=== PATIENT | female | born 1955 | race Caucasian/White ===

== ENCOUNTER → 2017-06-14 | Outpatient (CLI) | payer OTHER ==
[~2017-06-14] MED LIST: ATOR10TA24 PO; DILT180T; HYDR-2966 PO; OMEP40CA48 PO
--- NOTE | 2017-06-18 16:37 | RADIOLOGY IMAGING REPORT ---
FACILITY: [facility] - [place] PATIENT NAME: TONA GAXIOLA : [id number] MR: [id number] V: [id number] EXAM DATE: [id number] ORDERING PHYSICIAN: JUSTIN ROSEN TECHNOLOGIST: Gladys Toth PROCEDURE:BILATERAL DIGITAL SCREENING MAMMOGRAM WITH CAD ASSISTED INTERPRETATION AND 3D BREAST TOMOSYNTHESIS. COMPARISON:Prior mammograms dated 05/04/16, 04/07/15, 04/06/14, 03/04/13, 01/03/12 and 12/19/10. INDICATIONS:SCREENING FINDINGS: A small amount of fibroglandular tissue is seen throughout the breasts. The parenchymal pattern has remained stable when allowing for difference in mammographic technique and patient positioning. There is no evidence of malignant appearing mass, malignant appearing calcification or other secondary sign of malignancy in either breast. DIAGNOSTIC CATEGORY 1--NEGATIVE. RECOMMENDATIONS: ROUTINE MAMMOGRAM AND CLINICAL EVALUATION. IMPRESSION: Bi-RADS 1: No significant abnormality is seen. Images were reviewed with R2CAD and 3D breast tomosynthesis. Dictated by: Bela Lema M.D. on 06/14/2017 at 11:33 Transcribed by: NORY on 06/14/2017 at 16:05 Approved by: Bela Lema M.D. on 06/18/2017 at 16:36 [facility]
== END ==
LOC: MAMO 02:51
PROVIDERS: ATTEND Nurse Practitioner Family
DX: Z12.31 Encounter for screening mammogram for malignant neoplasm of breast (principal)
CPT/HCPCS: 77063; 77067

== ENCOUNTER 2017-09-04 02:42 | Day surgery (SDC) | payer OTHER ==
[~2017-09-04] VITALS: Ht 162.6 cm; Wt 96.6 kg
[2017-09-04] VITALS (7 sets, daily range): BP systolic 102–132; BP diastolic 68–99
[~2017-09-04 02:42] MED LIST changes: +CHOL200021 PO; +DEXL60CA6 PO; -DILT180T; +DILT180T PO; +FAMO40TA8 PO; +FLUO-177 PO; +HYDR12.556 PO; +NAPR220C12 PO; +PANT40TA65 PO; +[UNRECOGNIZED DRUG - OTHER] PO
--- NOTE | 2017-09-04 07:56 | Short(Outpt) Discharge Summary ---
Discharge Summary Reason for Hosp/Final Diag: (1) Sanchez's esophagus Status: Chronic Hospital Course & Plan: EGD with biopsies completed without problems. (2) GERD (gastroesophageal reflux disease) Status: Chronic Departure Discharge to: Home, Self Care Discharge Instructions Home Meds Active Scripts Famotidine (PEPCID) 40 Mg Tablet, 40 MG PO QDAY, #30 TAB 6 Refills Prov:MARIE MCBRIDE MD 08/13/17 Pantoprazole Sodium (PANTOPRAZOLE SODIUM) 40 Mg Tablet.dr, 40 MG PO QDAY, #30 TAB.SR 6 Refills Take in the morning 1/2 hour prior to eating. Prov:MARIE MCBRIDE MD 08/13/17 Reported Medications Hydrochlorothiazide (HYDROCHLOROTHIAZIDE) 12.5 Mg Capsule, 1 TAB PO QDAY, CAPSULE 08/09/17 Dm Hb/Pe/Acetaminophen/Chlorph (COLD HEAD CONGESTION CAPLET) 1 Each Tablet, 1 TAB PO BID 08/08/17 Naproxen Sodium (ALEVE) Unknown Strength Capsule, PO BID Y for PAIN, CAPSULE 08/08/17 Cholecalciferol (Vitamin D3) (VITAMIN D) 2,000 Unit Capsule, 1 CAP PO DAILY, CAPSULE 08/08/17 Fluoxetine Hcl (FLUOXETINE HCL) 20 Mg Capsule, 1 CAP PO QDAY, CAPSULE 08/08/17 Atorvastatin Calcium (LIPITOR) 10 Mg Tablet, 1 TAB PO QDAY, TAB 10/12/15 Diltiazem HCl (Diltiazem ER) 180 Mg Tab.er.24h, 180 MG PO DAILY 10/12/15 Follow up Referrals: General Surgery - 10/01/17 @ Surgery, General with Marie Mcbride Md You have a follow up appointment scheduled with Dr. Mcbride on 10/01/17, at 9:00am. Diet: Regular Activity: As Tolerated Problem Qualifiers (1) Sanchez's esophagus: Sanchez's esophagus type: without dysplasia Qualified Codes: K22.70 - Sanchez 's esophagus without dysplasia (2) GERD (gastroesophageal reflux disease): Esophagitis presence: without esophagitis Qualified Codes: K21.9 - Gastro- esophageal reflux disease without esophagitis MARIE MCBRIDE MD Sep 04, 2017 07:56
[2017-09-04] MEDS ORDERED: LIDOCAINE/SOD BICARB 8.4% SYR ID ONE (09:10)
[2017-09-04] MEDS ORDERED: NORMOSOL R SOLN(*) 1000 ML BAG 1,000 ML IV PRN (09:10)
[2017-09-09] MEDS ORDERED: DEXL30CA5 PO ×2 (14:07→14:08)
[2017-09-09] MEDS ORDERED: DEXL60CA6 PO ×2 (14:58→15:38)
== END 2017-09-04 09:10 | disposition home or self-care (01) ==
LOC: OR 02:42
PROVIDERS: ATTEND Surgery
DX: K22.719 Barrett's esophagus with dysplasia, unspecified (principal); K31.7 Polyp of stomach and duodenum; K44.9 Diaphragmatic hernia without obstruction or gangrene
CPT/HCPCS: 88305

== ENCOUNTER → 2018-03-07 | Outpatient (CLI) | payer OTHER ==
[~2018-03-07] MED LIST changes: +DEXL30CA5 PO
== END ==
LOC: RESP 19:48
PROVIDERS: ATTEND Nurse Practitioner Family
DX: G47.33 Obstructive sleep apnea (adult) (pediatric) (principal); G47.36 Sleep related hypoventilation in conditions classified elsewhere

== ENCOUNTER → 2018-05-30 | Outpatient (CLI) | payer OTHER ==
--- NOTE | 2018-05-30 13:18 | RADIOLOGY IMAGING REPORT ---
FACILITY: [facility] PATIENT NAME: Lianna Figueredo : 1955 MR: [id number] V: [id number] EXAM DATE: ORDERING PHYSICIAN: JUSTIN ROSEN TECHNOLOGIST: Location: [facility] Patient: Lianna Figueredo : 1955 Visit/Account:[id number] Date of Sevice: 05/30/2018 Exam type: CHEST PA AND LAT History: Cough, expiratory wheezing x1 week Comparison: Report from the prior two-view chest the 2016 is available however the images are no t. Findings: There is mild increased AP diameter the chest which may reflect mild hyperinflation. There is no terri dence of focal infiltrates pleural effusions or pulmonary edema. The cardiac silhouette is normal in size. IMPRESSION: 1. Mild hyperinflation of the lung cisneros Report Dictated By: Bela Lema MD at 05/30/2018 1:11 PM Report E-Signed By: Bela Lema MD at 05/30/2018 1:13 PM WSN:[email or web address]
== END ==
LOC: RAD 10:26
PROVIDERS: ATTEND Nurse Practitioner Family
DX: R91.8 Other nonspecific abnormal finding of lung field (principal)
CPT/HCPCS: 71046

== ENCOUNTER → 2018-07-14 | Outpatient (CLI) | payer OTHER ==
--- NOTE | 2018-07-15 11:15 | RADIOLOGY IMAGING REPORT ---
FACILITY: [facility] - [place] PATIENT NAME: TONA GAXIOLA : [id number] MR: [id number] V: [id number] EXAM DATE: ORDERING PHYSICIAN: JUSTIN ROSEN TECHNOLOGIST: Radha Martin PROCEDURE:BILATERAL DIGITAL SCREENING MAMMOGRAM WITH CAD ASSISTED INTERPRETATION & 3D TOMOSYNTHESIS COMPARISON:Prior mammograms 07/15/16, 05/04/16, 04/07/15, 04/06/14, 03/04/13, 01/03/12. INDICATIONS:SCREENING FINDINGS: The breasts are almost entirely fatty. The parenchymal pattern has remained stable allowing for difference in mammographic technique & patient positioning. DIAGNOSTIC CATEGORY 1--NEGATIVE. RECOMMENDATIONS: ROUTINE MAMMOGRAM AND CLINICAL EVALUATION. IMPRESSION: BIRADS 1: Negative. No significant abnormality is seen. Dictated by: Bela Lema M.D. on 07/14/2018 at 11:20 Transcribed by: DENZEL on 07/14/2018 at 13:47 Approved by: Bela Lema M.D. on 07/15/2018 at 11:14 [facility]
== END ==
LOC: MAMO 06:56
PROVIDERS: ATTEND Nurse Practitioner Family
DX: Z12.31 Encounter for screening mammogram for malignant neoplasm of breast (principal)
CPT/HCPCS: 77063; 77067